=== PATIENT | female | born 1950 | race Caucasian/White ===

== ENCOUNTER 2016-08-30 09:50 | Outpatient (CLI) | payer MEDICARE ==
--- NOTE | 2016-08-30 14:35 | MRI ---
MRI CERVICAL SPINE WITHOUT CONTRAST: Date: 08/30/16 HISTORY: Right cervical radiculopathy. Right-sided muscle tightness to neck. Fall in shower February 2016. TECHNIQUE: Multiplanar, multisequence MRI of cervical spine performed without contrast. FINDINGS: Marrow signal is normal of cervical spine. No marrow replacement process. Cerebellar tonsils terminate above the foramen magnum. Mild straightening of the cervical spine. Paraspinal soft tissues are unremarkable. Findings are as follows: C1-2: Normal. C2-3: Normal. C3-4: There is approximately 2.0 mm anterolisthesis of C3 over C4 due to bilateral moderate disc arthropat hy. There is mild left-sided neural foraminal narrowing. C4-5: Moderate degenerative disc space height loss of broad based posterior disc bulge. Minimal effacement of the ventral CSF space. No significant neural foraminal narrowing. Mild uncovertebral hypertrophy . C5-6: Moderate degenerative disc space height loss with uncovertebral hypertrophy, as well as broad based posterior disc protrusion. This protrusion, along with uncovertebral hypertrophy and moderate facet arthrosis, causes moderate bilateral neural foraminal narrowing at this level. The posterior disc os teophyte complex completely effaces the ventral CSF space with near cord abutment with the canal nieves suring approximately 8.0 mm. C6-7: Mild degenerative disc space height loss with uncovertebral hypertrophy and broad based posterior di sc osteophyte complex. This causes mild effacement of the ventral CSF space. There is associated lig amentum flavum hypertrophy. The spinal canal is narrowed to approximately 8.0 mm. There is moderate to severe bilateral neural foraminal narrowing at this level. C7-T1: No significant neural foraminal or spinal canal narrowing. IMPRESSION: Moderate spondylosis, most severe at C6-7, with moderate to severe bilateral neural foraminal narrow ing at this level, as well as mild spinal stenosis. POS: [facility]
== END 2016-08-30 09:51 | disposition home or self-care (01) ==
LOC: BURMRI 09:50
PROVIDERS: ATTEND Family Medicine
DX: M54.12 Radiculopathy, cervical region (principal); M48.06 Spinal stenosis, lumbar region; M47.816 Spondylosis without myelopathy or radiculopathy, lumbar region
CPT/HCPCS: 72141